=== PATIENT | male | born 1945 | race Caucasian/White ===

== ENCOUNTER 2018-02-22 08:48 | Inpatient (IN) | payer MEDICARE, SELFPAY ==
[2018-02-22] VITALS (10 sets, daily range): BP systolic 155–188; BP diastolic 96–107; PULSE 73–98; RESP 14–18; TEMP 36.3–36.6; O2SAT 94–98; BMI 36.8; BMI 33.7; BMI 33.8
--- NOTE | 2018-02-22 09:23 | EKG12_ITS ---
Test Reason : BACK PAIN Blood Pressure : / mmHG Vent. Rate : 096 BPM Atrial Rate : 344 BPM P-R Int : 000 ms QRS Dur : 080 ms QT Int : 418 ms P-R-T Axes : 000 -09 042 degrees QTc Int : 528 ms Atrial flutter with variable A-V block Nonspecific ST abnormality Prolonged QT Abnormal ECG Confirmed by ELI RUFF ([id number]), newspaper editor NILS EVANS ([id number]) on 02/24/2018 2:25:47 PM Referred By: CHENG Confirmed By:ELI RUFF
--- NOTE | 2018-02-22 09:28 | RAD_ITS ---
STUDY: X-RAY CHEST REASON FOR EXAM: Male, 72 years old. SUDDEN BACK PAIN, DIAPHORETIC. PATIENT IN AFLUTTER TECHNIQUE: Single AP portable view of the chest. COMPARISON: None. FINDINGS: The right hemidiaphragm is elevated. There is mild bibasilar atelectasis. There is no demonstrated pleural abnormality. There is borderline cardiomegaly. Normal mediastinum and ene. Normal visualized pulmonary arteries. There is atherosclerotic tortuosity of the aortic arch and descending thoracic aorta. Normal visualized thoracic spine. Normal visualized ribs, clavicles, and shoulders. There is no demonstrated abnormality of the visualized soft tissue structures of the upper abdomen. RAD/Chest 1 View (Portable) IMPRESSION: The right hemidiaphragm is elevated. There is mild bibasilar atelectasis. There is borderline cardiomegaly. Electronically Signed: Alma Waddell MD at 10:01 EDT , Service support ,
[2018-02-22] MEDS: 0.9% Normal Saline 1,000 ML 150 ML IV (09:50)
[2018-02-22] MEDS: Aspirin 81 MG TAB.CHEW 324 MG PO (09:50)
[2018-02-22 09:51] LABS: Absolute Lymphocyte Count 0.96 X10^3/ul (0.83-4.51); Absolute Neutrophil Count 5.3 X10^3/uL (2.0-7.7); Basophil# 0.04 X10^3/uL; Basophil% 0.6 % (0-1); Eosinophil# 0.16 X10^3/uL; Eosinophils% 2.3 % (0-5); Hematocrit 45.5 % (40-54); Hemoglobin 15.4 g/dl (13.0-16.5); Lymphocyte # 0.96 X10^3/ul (4.0); Lymphocyte % 13.8 % (19-41); Mean Corp Hgb Conc 33.8 g/gl (32-36); Mean Corpuscular Hgb 30.9 pg (27.0-32.0); Mean Corpuscular Volume 91.2 fL (80-94); Mean Platelet Vol. 10.1 fl (6.2-12.0); Monocyte# 0.47 X10^3/uL; Monocyte% 6.7 % (0-10); Neutrophil # 5.34 X10^3/uL (2.7-7.7); Neutrophil % 76.5 % (47-70); Platelet Count 224 K/mm3 (150-450); RBC Distribution Width CV 13.7 % (11.6-14.6); Red Blood Count 4.99 M/mm3 (4.6-6.2)
[2018-02-22 09:55] LABS: POSITIVE COUNT NO; POSITIVE DIFFERENTIAL NO; POSITIVE MORPHOLOGY NO
--- NOTE | 2018-02-22 10:00 | ED.VISSUMM ---
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 He reports that he has a history of chronic back pain following a fall in 1987. States the pain comes and goes and is relieved mainly by acupuncture. Last had acupuncture approximately 4 months ago. States pain is increased over the past month. He denies any trauma. No fall, MVA, or change in activity. Reports that this morning he was having pain that was 10 out of 10 in severity. He received medication by squad on the way to the emergency room and reports that his pain is now 2 out of 10 severity. Pain is worsened by movement. He denies any radiation to his legs. No numbness or weakness in his legs. No problems with his bowels or his bladder. 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 Is that he has had this in the past as well. He denies any chest pain, shortness of breath, palpitations, abdominal pain, nausea, vomiting, diarrhea, melena, hematochezia, or other complaints. Physical Examination: Vitals: Stable. Afebrile. General: Well-nourished and well-developed. Head: Normocephalic atraumatic. Neck: Supple, no lymphadenopathy. No JVD. Nontender. Cardiovascular: Irregular rhythm. No murmurs. Respiratory: No respiratory distress. Clear to auscultation bilaterally. Abdominal: Soft, nontender, nondistended, normal bowel sounds. No guarding, rebound, or peritoneal signs. Back: Nontender. Extremities: Nontender, no edema. Skin: Normal color, no rash. Neurologic: Alert and oriented ?3. Cranial nerves II through XII are intact. Normal strength and sensation. Psych: Normal affect. Test Results: EKG is atrial flutter at 96 with no ischemic changes. Oh for segment neutrophils of 77 lymphocytes 14. Chem-7 is more for glucose 134 and BUN of 21. TSH 3.20. Coags are normal. Troponin 0 0.03. Emergency Department Course and Treatment: Patient is resting comfortably and refused further pain medications. He was treated with aspirin p.o. He does not sense the atrial flutter and it is unclear how long he has been in this rhythm. He does not have a history of atrial flutter. Treatment Plan: Patient will be admitted to the hospital for further evaluation and treatment. Disposition: Admitted in stable condition. Impression: 1. Chronic back pain. 2. Atrial flutter, new onset. 3. Near syncope. This note was generated with [employer] dictation software. It may contain incorrect words, spelling, and punctuation that were not noted in review of the chart prior to signing ED Disposition - Plan for ED Patient: Chief Complaint: Back Referrals: Care Physician,No Primary [Primary Care Provider] -
[2018-02-22 10:05] LABS: Prothrombin Time (Protime)PT. 13.1 SECONDS (11.7-14.9)
[2018-02-22 10:06] LABS: Partial Thromboplast Time 28.5 Seconds (24.1-36.2)
[2018-02-22 10:18] LABS: Anion Gap 9 (5-15); BUN 21 mg/dL (7-18); BUN/Creat Ratio 16.9 RATIO (10-20); Calcium,Total 8.6 mg/dL (8.5-10.1); Chloride 107 mmol/L (98-107); Creatinine, Serum 1.24 mg/dL (0.70-1.30); EST Glomerular Filtration Rate 61 mL/min (>60); Est Glom Filt Rate - Afr Amer 74 mL/min (>60); Estimated Creatinine Clearance 64.45 ml/min; Glucose 134 mg/dL (74-106); Potassium 3.9 mmol/L (3.5-5.1); Sodium Level 141 mmol/L (136-145)
--- NOTE | 2018-02-22 11:54 | CASEMGMT ---
Social Work Note Attempted to see pt in ED for initial assessment and pt being wheeled to floor. Inpatient case managed to evaluate for discharge needs. Kenia Powell, [employer]TER [employer], GLUE JOINTER FEEDER
--- NOTE | 2018-02-22 12:04 | ECHOD_ITS ---
Reason For Study: AFIB/FLUTTER Procedure This was a 2D Doppler, Color Flow transthoracic echocardiogram. Exam performed portable in patient room. Left Ventricle Moderate concentric left ventricular hypertrophy. The estimated ejection fraction is 65-70 %. Unable to assess diastolic dysfunction. No regional wall motion abnormalities noted. Right Ventricle Normal size and thickness. Normal systolic function. Atria Normal left atrium. Normal right atrium. Normal atrial septum. Mitral Valve The mitral valve is structurally normal. No prolapse or stenosis seen. Tricuspid Valve Normal tricuspid valve. Unable to estimate RV systolic pressure/pulmonary artery pressure due to technically difficult study. Aortic Valve Normal aortic valve. Trisinus/trileaflet aortic valve. Pulmonic Valve Normal pulmonic valve. Great Vessels Normal aortic root. Normal arch. Normal inferior vena cava. Inferior vena cava collapse with sniff. Pericardium/Pleural No pericardial effusion. MMode/2D Measurements & Calculations LVIDd: 4.1 cm IVSd: 1.5 cm Ao root diam: 3.8 cm LVIDs: 2.8 cm LVPWd: 1.6 cm RVDd: 3.6 cm FS: 32.9 % LAV(MOD-bp): 49.5 ml EDV(MOD-sp4): 111.6 ml SV(MOD-sp4): 76.1 ml LAV(MOD-bp) Indexed: 19.9 ml/m2 ESV(MOD-sp4): 35.5 ml LAV(MOD-sp2): 55.3 ml EF(MOD-sp4): 68.2 % LAV(MOD-sp4): 45.4 ml LA A4 area: 17.9 cm2 RA A4 area: 14.3 cm2 Doppler Measurements & Calculations MV E max geovanny: 98.4 cm/sec Ao V2 max: 147.3 cm/sec LV V1 max: 145.3 cm/sec Ao max P.8 mmHg LV V1 max P.5 mmHg PA V2 max: 147.3 cm/sec Interpretation Summary Moderate concentric left ventricular hypertrophy. The estimated ejection fraction is 65-70 %. Unable to assess diastolic dysfunction. Unable to estimate RV systolic pressure/pulmonary artery pressure due to technically difficult study. Pt appears to be in atrial flutter. The study was technically difficult. There is no comparison study available. Ordering Physician: Kevin Mixon Performed By: Iliana Solano RDCS
--- NOTE | 2018-02-22 12:08 | PCM.HP.STD ---
Problem List (1) Near syncope Status: Acute (2) Atrial flutter Status: Acute (3) Status post Whipple's procedure Status: Chronic (4) Familial adenomatous polyposis Status: Chronic (5) Chronic back pain Status: Chronic (6) Hypertension Status: Chronic History of Present Illness Date of Admission: 02/22/18 Chief Complaint: Back pain, near syncope. The patient is a 72 year old M with past medical history as mentioned above presented to the emergency room because of back pain and near syncope. This patient with a history of back injury back in 1987 and since then, he has issues with chronic back pain. For the last 2 weeks, he has been having progressively increasing low back pain, sharp pain, 7 out of 10 in severity, not radiating, associated with muscle spasm around his lower back, somewhat aggravated by movement and he mentioned that the only relieving factor is acupuncture. He did mention that when his pain starts, it is so severe that he is about to pass out. He denied chest pain, dizziness or lightheadedness. He did mention that he had multiple episodes of near passing out when he has those episodes of sharp sudden onset back pain. He denied upper back pain, palpitation, dizziness or lightheadedness. He had multiple sessions for acupuncture in the past and he mentioned that that works perfectly for his back pain. He denied mechanical fall or trauma at this time. He denied numbness or tingling of both legs. He denied bowel or bladder incontinence. In the emergency room, he was found to be in atrial flutter, heart rate was around high 90s, blood pressure slightly elevated, was afebrile. Routine blood work was unremarkable. Troponin was negative. TSH was normal. Pro time and INR were normal. His EKG revealed atrial flutter with a rate of about 96 bpm, no acute ischemic changes. Chest x-ray revealed mild cardiomegaly, no acute infiltrate, consolidation or effusion. He is being admitted for new onset atrial flutter, new syncope and acute on chronic back pain. Past Medical History Past Medical History (Chronic Problems): Chronic Problems Status post Whipple's procedure (Chronic) Familial adenomatous polyposis (Chronic) Chronic back pain (Chronic) Hypertension (Chronic) Allergies Penicillins Allergy (Verified 02/22/18 08:53) Itching Home Medications: Ambulatory Orders Medication Instructions Recorded Metoprolol Tartrate [Lopressor] 50 mg PO BID 02/22/18 Multivitamin [Multiple Vitamins] 1 each PO DAILY 02/22/18 Surgical History: - - Whipple procedure. Psychiatric History: No pertinent psych hx Lives: Spouse/ Significant Other Smoking Status: Former smoker Alcohol: Rare Drugs: None - *Family History Maternal History Items: No pertinent history Paternal History Items: No pertinent history Review of Systems Constitutional: Denies: Anorexia, Chills, Fever, Weakness Eyes: Denies: Blurred vision, Double vision, Drainage, Redness HEENT: Denies: Difficulty Hearing, Ear Pain, Eye Pain, Nasal Congestion, Sore Throat Cardiovascular: Reports: - - Near syncope.. Denies: Chest Pain, Chest Pressure, Edema, Heaviness, Orthopnea, Palpitations, Paroxysmal Noc. Dyspnea, Syncope Respiratory: Denies: Cough, Hemoptysis, Pleuritic Pain, Shortness of Breath, Sputum production, Wheezing Gastrointestinal: Denies: Abdominal Pain, Constipation, Diarrhea, Nausea, Vomiting Genitourinary: Denies: Dysuria, Frequency, Hematuria Musculoskeletal: Reports: Back Pain. Denies: Arm Pain, Foot Pain Skin: Denies: Dryness, Rash Neurological: Denies: Balance problems, Change in Speech, Slurred speech, Confusion, Headaches, Incoordination, Numbness Psychiatric: Denies: Anxiety, Depression Endocrine: Denies: Change in Body Habitus, Polydipsia VTE Information - Inpt Only VTE Present on Admission: No VTE Mechan Device Prophylaxis: None VTE Pharm Prophylaxis ordered?: Yes Patient Problems: Active and Suspected Problems Near syncope (Acute) Atrial flutter (Acute) - Physical Exam General: Alert, Oriented x3, Cooperative, No apparent distress HEENT: Atraumatic, PERRLA, EOMI Oral: Moist Mucosa, No Gingival or Mucosal Lesions/ Ulcerations Neck: Supple, No JVD, Negative Carotid Bruits, Trachea Midline, Thyroid Normal Size and Texture Lungs: Clear to auscultation, No rhonchi, No wheeze, No rales, Diminished Cardiovascular: Normal S1, Normal S2, No murmurs, PMI Normal, Irregular Rate, Tachycardic Abdomen: Bowel Sounds Present, Soft, Non Tender, Non-Distended, No Hepato-splenomegaly Extremities: No clubbing, No cyanosis, No edema Skin: No rashes, No breakdown Lymphatic: No Cervical, Supraclavicular, or Inguinal Adenopathy Neurological: Cranial nerves II-XII grossly intact, Motor Exam 5/5 strength throughout Psych/Mental Status: Normal Affect, Appropriate, Alert and oriented to time, place, person, mood and affect Vital Signs Temp Pulse Resp BP Pulse Ox 97.8 F 80 16 164/107 H 97 02/22/18 08:48 02/22/18 11:19 02/22/18 11:19 02/22/18 11:19 02/22/18 11:19 Oxygen Flow Rate (L/min) 2 Oxygen Delivery Method Nasal Cannula Weight: 270 lb 1.06 oz Body Mass Index (BMI) 33.7 Laboratory Tests 02/22/18 02/22/18 02/22/18 Range/Units 09:40 09:40 09:40 WBC 7.0 (4.4-11.0) K/mm3 RBC 4.99 (4.6-6.2) M/mm3 Hgb 15.4 (13.0-16.5) g/dl Hct 45.5 (40-54) % MCV 91.2 (80-94) fL MCH 30.9 (27.0-32.0) pg MCHC 33.8 (32-36) g/gl RDW 13.7 (11.6-14.6) % RDW Differential 45.0 H (35.1-43.9) fl Plt Count 224 (150-450) K/mm3 MPV 10.1 (6.2-12.0) fl Immature Gran % (Auto) 0.100 (0.0-0.9) % Neut % (Auto) 76.5 H (47-70) % Lymph % (Auto) 13.8 L (19-41) % [place] % (Auto) 6.7 (0-10) % Eos % (Auto) 2.3 (0-5) % Baso % (Auto) 0.6 (0-1) % Absolute Neuts (auto) 5.3 (2.0-7.7) X10^3/uL Absolute Lymphs (auto) 0.96 (0.83-4.51) X10^3/ul Total Counted Not Reportable PT 13.1 (11.7-14.9) SECONDS INR 1.0 APTT 28.5 (24.1-36.2) Seconds Sodium 141 (136-145) mmol/L Potassium 3.9 (3.5-5.1) mmol/L Chloride 107 (98-107) mmol/L Carbon Dioxide 25.0 (21.0-32.0) mmol/L Anion Gap 9 (5-15) BUN 21 H (7-18) mg/dL Creatinine 1.24 (0.70-1.30) mg/dL Estim Creat Clear Calc 64.45 ml/min Est GFR (MDRD) Af Amer 74 (>60) mL/min Est GFR (MDRD) Non-Af 61 (>60) mL/min BUN/Creatinine Ratio 16.9 (10-20) RATIO Glucose 134 H (74-106) mg/dL Calcium 8.6 (8.5-10.1) mg/dL Troponin I 0.03 (<0.06) ng/mL TSH 3.20 (0.358-3.74) uIU/mL Clinical Impression(s) from Imaging Studies Chest X-Ray 02/22/18 09:28 IMPRESSION: The right hemidiaphragm is elevated. There is mild bibasilar atelectasis. There is borderline cardiomegaly. Electronically Signed: Alma Waddell MD at 10:01 EDT , Service support , Assessment/Plan Active and Suspected Problems Near syncope (Acute) Atrial flutter (Acute) This is a 72 years old male patient presented to the medicine because of acute on chronic low back pain and near syncope and he was found to have newly diagnosed atrial flutter. #1 newly diagnosed atrial flutter: EKG revealed atrial flutter, rate was around 96 bpm. Blood pressure slightly elevated. No acute ischemic changes on EKG. Troponin is negative. Chest x-ray showed mild cardiomegaly, no acute findings. TSH was normal. Plan: Admit to PCU, cardiac monitoring, serial cardiac enzymes, repeat EKG tomorrow morning, 2D echocardiogram, check serum magnesium, continue metoprolol for rate control, therapeutic Twice daily. His [id number] score is 2 based on his age and history of hypertension, he is at moderate to high risk of stroke and he is a candidate for anticoagulation. #2 near syncope: This is likely neurogenic because of sudden onset severe back pain. I doubt this is cardiogenic. Chest x-ray revealed tortuous aortic arch and descending thoracic aorta. The patient mentioned that the pain is in the lower back and he had this episode of near syncope in the past with sudden onset acute low back pain. He denied upper back pain, chest pain, shortness of breath or syncope. At this time, I doubt any more serious condition such as aortic dissection. No indication for further workup. #3 acute on chronic low back pain: He has chronic back pain secondary to back injury back in 1987. He has been using acupuncture intermittently which works specifically for his pain. He is not on any chronic pain medicine. No evidence of acute nerve compression. Denied mechanical fall or trauma. Plan: OxyIR as needed, Flexeril, PT OT evaluation and treatment. #4 hypertension: Blood pressure slightly elevated, continue metoprolol, start IV hydralazine as needed. #5 history of familial adenomatous polyposis: Status post Whipple's procedure, stable. Plan to check LFT, lipase. #6 DVT prophylaxis: Subcu Lovenox twice daily. This note was generated with [employer] dictation software. It may contain incorrect words, spelling, and punctuation that were not noted in checking the note before signing. Code Visit Inpatient E&M: 00637 Init Hosp L3
--- NOTE | 2018-02-22 12:14 | HP.PCM_ITS ---
Problem List (1) Near syncope Status: Acute (2) Atrial flutter Status: Acute (3) Status post Whipple's procedure Status: Chronic (4) Familial adenomatous polyposis Status: Chronic (5) Chronic back pain Status: Chronic (6) Hypertension Status: Chronic History of Present Illness Date of Admission: 02/22/18 Chief Complaint: Back pain, near syncope. The patient is a 72 year old M with past medical history as mentioned above presented to the emergency room because of back pain and near syncope. This patient with a history of back injury back in 1987 and since then, he has issues with chronic back pain. For the last 2 weeks, he has been having progressively increasing low back pain, sharp pain, 7 out of 10 in severity, not radiating, associated with muscle spasm around his lower back, somewhat aggravated by movement and he mentioned that the only relieving factor is acupuncture. He did mention that when his pain starts, it is so severe that he is about to pass out. He denied chest pain, dizziness or lightheadedness. He did mention that he had multiple episodes of near passing out when he has those episodes of sharp sudden onset back pain. He denied upper back pain, palpitation, dizziness or lightheadedness. He had multiple sessions for acupuncture in the past and he mentioned that that works perfectly for his back pain. He denied mechanical fall or trauma at this time. He denied numbness or tingling of both legs. He denied bowel or bladder incontinence. In the emergency room, he was found to be in atrial flutter, heart rate was around high 90s, blood pressure slightly elevated, was afebrile. Routine blood work was unremarkable. Troponin was negative. TSH was normal. Pro time and INR were normal. His EKG revealed atrial flutter with a rate of about 96 bpm, no acute ischemic changes. Chest x-ray revealed mild cardiomegaly, no acute infiltrate, consolidation or effusion. He is being admitted for new onset atrial flutter, new syncope and acute on chronic back pain. Past Medical History Past Medical History (Chronic Problems): Chronic Problems Status post Whipple's procedure (Chronic) Familial adenomatous polyposis (Chronic) Chronic back pain (Chronic) Hypertension (Chronic) Allergies Penicillins Allergy (Verified 02/22/18 08:53) Itching Home Medications: Ambulatory Orders Medication Instructions Recorded Metoprolol Tartrate [Lopressor] 50 mg PO BID 02/22/18 Multivitamin [Multiple Vitamins] 1 each PO DAILY 02/22/18 Surgical History: - - Whipple procedure. Psychiatric History: No pertinent psych hx Lives: Spouse/ Significant Other Smoking Status: Former smoker Alcohol: Rare Drugs: None - *Family History Maternal History Items: No pertinent history Paternal History Items: No pertinent history Review of Systems Constitutional: Denies: Anorexia, Chills, Fever, Weakness Eyes: Denies: Blurred vision, Double vision, Drainage, Redness HEENT: Denies: Difficulty Hearing, Ear Pain, Eye Pain, Nasal Congestion, Sore Throat Cardiovascular: Reports: - - Near syncope.. Denies: Chest Pain, Chest Pressure , Edema, Heaviness, Orthopnea, Palpitations, Paroxysmal Noc. Dyspnea, Syncope Respiratory: Denies: Cough, Hemoptysis, Pleuritic Pain, Shortness of Breath, Sputum production, Wheezing Gastrointestinal: Denies: Abdominal Pain, Constipation, Diarrhea, Nausea, Vomiting Genitourinary: Denies: Dysuria, Frequency, Hematuria Musculoskeletal: Reports: Back Pain. Denies: Arm Pain, Foot Pain Skin: Denies: Dryness, Rash Neurological: Denies: Balance problems, Change in Speech, Slurred speech, Confusion, Headaches, Incoordination, Numbness Psychiatric: Denies: Anxiety, Depression Endocrine: Denies: Change in Body Habitus, Polydipsia VTE Information - Inpt Only VTE Present on Admission: No VTE Mechan Device Prophylaxis: None VTE Pharm Prophylaxis ordered?: Yes Patient Problems: Active and Suspected Problems Near syncope (Acute) Atrial flutter (Acute) - Physical Exam General: Alert, Oriented x3, Cooperative, No apparent distress HEENT: Atraumatic, PERRLA, EOMI Oral: Moist Mucosa, No Gingival or Mucosal Lesions/ Ulcerations Neck: Supple, No JVD, Negative Carotid Bruits, Trachea Midline, Thyroid Normal Size and Texture Lungs: Clear to auscultation, No rhonchi, No wheeze, No rales, Diminished Cardiovascular: Normal S1, Normal S2, No murmurs, PMI Normal, Irregular Rate, Tachycardic Abdomen: Bowel Sounds Present, Soft, Non Tender, Non-Distended, No Hepato- splenomegaly Extremities: No clubbing, No cyanosis, No edema Skin: No rashes, No breakdown Lymphatic: No Cervical, Supraclavicular, or Inguinal Adenopathy Neurological: Cranial nerves II-XII grossly intact, Motor Exam 5/5 strength throughout Psych/Mental Status: Normal Affect, Appropriate, Alert and oriented to time, place, person, mood and affect Vital Signs Temp Pulse Resp BP Pulse Ox 97.8 F 80 16 164/107 H 97 02/22/18 08:48 02/22/18 11:19 02/22/18 11:19 02/22/18 11:19 02/22/18 11:19 Oxygen Flow Rate (L/min) 2 Oxygen Delivery Method Nasal Cannula Weight: 270 lb 1.06 oz Body Mass Index (BMI) 33.7 Laboratory Tests 3 02/22/18 02/22/18 02/22/18 Range/Units 09:40 09:40 09:40 WBC 7.0 (4.4-11.0) K/mm3 RBC 4.99 (4.6-6.2) M/mm3 Hgb 15.4 (13.0-16.5) g/dl Hct 45.5 (40-54) % MCV 91.2 (80-94) fL MCH 30.9 (27.0-32.0) pg MCHC 33.8 (32-36) g/gl RDW 13.7 (11.6-14.6) % RDW Differential 45.0 H (35.1-43.9) fl Plt Count 224 (150-450) K/mm3 MPV 10.1 (6.2-12.0) fl Immature Gran % (Auto) 0.100 (0.0-0.9) % Neut % (Auto) 76.5 H (47-70) % Lymph % (Auto) 13.8 L (19-41) % [place] % (Auto) 6.7 (0-10) % Eos % (Auto) 2.3 (0-5) % Baso % (Auto) 0.6 (0-1) % Absolute Neuts (auto) 5.3 (2.0-7.7) X10^3/uL Absolute Lymphs (auto) 0.96 (0.83-4.51) X10^3/ul Total Counted Not Reportable PT 13.1 (11.7-14.9) SECONDS INR 1.0 APTT 28.5 (24.1-36.2) Seconds Sodium 141 (136-145) mmol/L Potassium 3.9 (3.5-5.1) mmol/L Chloride 107 (98-107) mmol/L Carbon Dioxide 25.0 (21.0-32.0) mmol/L Anion Gap 9 (5-15) BUN 21 H (7-18) mg/dL Creatinine 1.24 (0.70-1.30) mg/dL Estim Creat Clear Calc 64.45 ml/min Est GFR (MDRD) Af Amer 74 (>60) mL/min Est GFR (MDRD) Non-Af 61 (>60) mL/min BUN/Creatinine Ratio 16.9 (10-20) RATIO Glucose 134 H (74-106) mg/dL Calcium 8.6 (8.5-10.1) mg/dL Troponin I 0.03 (<0.06) ng/mL TSH 3.20 (0.358-3.74) uIU/mL Clinical Impression(s) from Imaging Studies Chest X-Ray 02/22/18 09:28 IMPRESSION: The right hemidiaphragm is elevated. There is mild bibasilar atelectasis. There is borderline cardiomegaly. Electronically Signed: Alma Waddell MD at 10:01 EDT , Service support , Assessment/Plan Active and Suspected Problems Near syncope (Acute) Atrial flutter (Acute) This is a 72 years old male patient presented to the medicine because of acute on chronic low back pain and near syncope and he was found to have newly diagnosed atrial flutter. #1 newly diagnosed atrial flutter: EKG revealed atrial flutter, rate was around 96 bpm. Blood pressure slightly elevated. No acute ischemic changes on EKG. Troponin is negative. Chest x-ray showed mild cardiomegaly, no acute findings. TSH was normal. Plan: Admit to PCU, cardiac monitoring, serial cardiac enzymes, repeat EKG tomorrow morning, 2D echocardiogram, check serum magnesium, continue metoprolol for rate control, therapeutic Twice daily. His [id number] score is 2 based on his age and history of hypertension, he is at moderate to high risk of stroke and he is a candidate for anticoagulation. #2 near syncope: This is likely neurogenic because of sudden onset severe back pain. I doubt this is cardiogenic. Chest x-ray revealed tortuous aortic arch and descending thoracic aorta. The patient mentioned that the pain is in the lower back and he had this episode of near syncope in the past with sudden onset acute low back pain. He denied upper back pain, chest pain, shortness of breath or syncope. At this time, I doubt any more serious condition such as aortic dissection. No indication for further workup. #3 acute on chronic low back pain: He has chronic back pain secondary to back injury back in 1987. He has been using acupuncture intermittently which works specifically for his pain. He is not on any chronic pain medicine. No evidence of acute nerve compression. Denied mechanical fall or trauma. Plan: OxyIR as needed, Flexeril, PT OT evaluation and treatment. #4 hypertension: Blood pressure slightly elevated, continue metoprolol, start IV hydralazine as needed. #5 history of familial adenomatous polyposis: Status post Whipple's procedure, stable. Plan to check LFT, lipase. #6 DVT prophylaxis: Subcu Lovenox twice daily. This note was generated with [employer] dictation software. It may contain incorrect words, spelling, and punctuation that were not noted in checking the note before signing. Code Visit Inpatient E&M: 39489 Init Hosp L3
[2018-02-22 12:43] LABS: AST(SGOT) 25 U/L (15-37); Alanine Aminotransfer ALT/SGPT 38 U/L (16-61); Albumin, Serum 3.3 g/dL (3.2-5.0); Alkaline Phosphatase 117 U/L (45-117); Bilirubin, Direct 0.12 mg/dL (0.00-0.30); Cholesterol 161 mg/dL (200); Globulin 3.6 g/dL (2.2-4.2); High Density Lipoprotein 41 mg/dL; Lipase 83 U/L (73-393); Protein, Total 6.9 g/dL (6.4-8.2); Triglycerides 218 mg/dL; Very Low Density Lipoprotein 44 mg/dL (5-40)
[2018-02-22] MEDS: 0.9% Normal Saline 1,000 ML 75 ML IV (16:54)
[2018-02-22] MEDS: Enoxaparin 120 MG/0.8 ML Syringe SC (16:55)
[2018-02-22] MEDS: Metoprolol Tartrate 50 MG Tablet PO (21:14)
[2018-02-23] VITALS (15 sets, daily range): BP systolic 133–176; BP diastolic 79–106; PULSE 53–92; RESP 16–18; TEMP 36.4–37.1; O2SAT 96–98
[2018-02-23] MEDS: hydrALAZINE 20 MG/ML Vial 10 MG IV (03:11)
--- NOTE | 2018-02-23 05:55 | EKG12_ITS ---
Test Reason : AM EKG Blood Pressure : / mmHG Vent. Rate : 081 BPM Atrial Rate : 081 BPM P-R Int : 000 ms QRS Dur : 090 ms QT Int : 400 ms P-R-T Axes : 000 -19 049 degrees QTc Int : 464 ms Atrial fibrillation Abnormal ECG Confirmed by PITER ANTOINE, VITALY ([id number]), technical editor NILS EVANS ([id number] on 02/25/2018 1:28:38 PM Referred By: MONICA Confirmed By:VITALY DUMAS MD
[2018-02-23] MEDS: Lisinopril 20 MG Tablet PO (06:35)
[2018-02-23] MEDS: Enoxaparin 120 MG/0.8 ML Syringe SC (06:36)
--- NOTE | 2018-02-23 07:55 | PCM.PROGNOTE ---
Patient Problems: Active and Suspected Problems Near syncope (Acute) Atrial flutter (Acute) Subjective: Chief complaint: Follow-up after admission for newly diagnosed atrial flutter/fibrillation and acute on chronic back pain. Patient seen and examined. No acute events overnight. Back pain significantly improved, no more muscle spasm. Denied chest pain, shortness of breath, palpitation, dizziness or lightheadedness. He remained in A. fib, rate is controlled. Blood pressure is elevated. Apparently, patient takes 100 mg of metoprolol twice a day but he mentioned that he takes only 50 mg twice a day. - Physical Exam General: Alert, Oriented x3, Cooperative, No apparent distress HEENT: Atraumatic, PERRLA, EOMI Oral: Moist Mucosa, No Gingival or Mucosal Lesions/ Ulcerations Neck: Supple, No JVD, Negative Carotid Bruits, Trachea Midline, Thyroid Normal Size and Texture Lungs: Clear to auscultation, No rhonchi, No wheeze, No rales, Diminished Cardiovascular: Normal S1, Normal S2, No murmurs, PMI Normal, Irregular Rate Abdomen: Bowel Sounds Present, Soft, Non Tender, Non-Distended, No Hepato-splenomegaly Extremities: No clubbing, No cyanosis, No edema Skin: No rashes, No breakdown Lymphatic: No Cervical, Supraclavicular, or Inguinal Adenopathy Neurological: Cranial nerves II-XII grossly intact, Neuro grossly intact Psych/Mental Status: Normal Affect, Appropriate Vital Signs Temp Pulse Resp BP Pulse Ox 98.3 F 81 16 176/106 H 96 02/23/18 03:06 02/23/18 06:26 02/23/18 03:06 02/23/18 06:26 02/23/18 03:06 Oxygen Flow Rate (L/min) 2 Oxygen Delivery Method Room Air Weight: 270 lb 1.06 oz Body Mass Index (BMI) 33.7 Intake and Output for Last 24 Hours 02/21/18 02/22/18 02/23/18 23:59 23:59 23:59 Intake Total 1060 / 1060 497 / 497 Balance 1060 / 1060 497 / 497 Laboratory Tests Past 24 Hrs 02/22/18 02/22/18 02/22/18 13:45 17:35 23:14 Troponin I 0.09 H 0.12 H 0.07 H Medical Necessity - Tobacco Use Smoking Status: Former smoker Tobacco Use: Cigarettes Assessment/Plan Active and Suspected Problems Near syncope (Acute) Atrial flutter (Acute) This is a 72 years old male patient presented to the medicine because of acute on chronic low back pain and near syncope and he was found to have newly diagnosed atrial flutter. #1 newly diagnosed atrial flutter/fibrillation: Patient remained in atrial flutter/fibrillation, rate is controlled. He remained asymptomatic. EKG from today revealed atrial fibrillation, rate is controlled. Serum electrolytes are normal. TSH is normal. Troponin is borderline elevated. 2D echocardiogram ordered. He is on metoprolol for rate control and on Lovenox for anticoagulation. Plan: Cardiology consult. #2 near syncope: This is likely neurogenic because of sudden onset severe back pain. I doubt this is cardiogenic. Blood pressure has been elevated, heart rate has been stable and in A. fib. Plan as above. #3 indeterminate troponin: Likely because of atrial flutter/fib. Underlying CAD cannot be excluded. Patient remained without chest pain. Plan as above, cardiology consult, 2D echocardiogram. #4 acute on chronic low back pain: Patient reported significant improvement of his back pain. Flexeril worked perfectly. He has chronic back pain secondary to back injury back in 1987. He has been using acupuncture intermittently which works specifically for his pain. He is not on any chronic pain medicine. #5 hypertension: Blood pressure slightly elevated. Patient's states that he takes 100 mg of metoprolol twice daily instead of 50 mg twice daily. This will be adjusted, continue IV hydralazine as needed. #6 history of familial adenomatous polyposis: Status post Whipple's procedure, stable. LFT and lipase were normal. #7 DVT prophylaxis: Subcu Lovenox twice daily. This note was generated with Vided[employer] dictation software. It may contain incorrect words, spelling, and punctuation that were not noted in checking the note before signing. Code Visit Inpatient E&M: 82396 Subs Hosp L2
[2018-02-23] MEDS: Metoprolol Tartrate 100 MG Tablet PO ×2 (10:16→21:08)
[2018-02-23] MEDS: Fluticasone 0.05% 1 SPRAY NASAL.SRY NASAL ×2 (10:16→21:08)
[2018-02-23] MEDS: Aspirin 325 MG Tablet PO (10:16)
[2018-02-23] MEDS: 0.9% NaCl Peripheral Flush Adult/Peds IV ×2 (10:17→21:08)
--- NOTE | 2018-02-23 11:24 | CASEMGMT ---
Face to Face with patient for initial transition planning/care coordination assessment. SALMA QUINN introduced self and role at [facility], pt voices understanding and consents to assessment at this time. Pt is sitting up in bed in no distress at this time. Pt is A/O x4 at this time and answers all questions appropriately at this time. Care providers, pharmacy, and demographics verified. See attached link. Pt voices no further concerns/needs at this time. Advised pt to ask for CM if any further questions/concerns/needs arise, voices understanding. Referral to [facility] to complete AD info with pt, voices understanding. PLAN: [place] SALMA QUINN
--- NOTE | 2018-02-23 11:46 | PCM.CONS.C ---
Problem List (1) Near syncope Status: Acute (2) Atrial flutter Status: Acute (3) Hypertension Status: Chronic Reason for Consult Date of Consultation: 02/23/18 Reason for Consultation: Atrial flutter, hypertension, near syncope History of Present Illness: The patient is a 72 year old M, with a history of hypertension, former tobacco user of approximately 10 pack years, quit 30 years ago, nondiabetic, no previous CVA or TIA, normal cholesterol, no known cardiac disease. The patient had a traumatic fall in 1987 fracturing L3 through L5 requiring him to be in rehab for 2 full years. Patient has had chronic low back pain with occasional spasms relieved with acupuncture therapy. In addition the patient drinks between 2-3 cups of coffee a day, and 2 cans of beer per week and co-owns a local bar. While the patient was at work yesterday he developed severe back spasm, with associated palpitations, but no chest pain angina or shortness of breath. The patient became lightheaded and dizzy and had a presyncopal episode. He was brought to the [facility] ER where an EKG showed atrial flutter with rapid ventricular response. This was new to him. He has never been told he had atrial fibrillation or atrial flutter. The patient was treated medically and his initial troponin was negative but then peaked at 0.12 and is now trending downwards. 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 An echocardiogram was performed which showed hyperdynamic LV function with an EF of 65-70%, unable to quantitate RVSP, poor echo windows. Stress test is pending. [] Past Medical History Allergies/Adverse Reactions: Allergies Penicillins Allergy (Verified 02/22/18 08:53) Itching Home Medications: Ambulatory Orders Medication Instructions Recorded Metoprolol Tartrate [Lopressor] 100 mg PO BID 02/22/18 Multivitamin [Multiple Vitamins] 1 each PO DAILY 02/22/18 Past Medical History (Chronic Problems): Chronic Problems Status post Whipple's procedure (Chronic) Familial adenomatous polyposis (Chronic) Chronic back pain (Chronic) Hypertension (Chronic) Surgical History: - - Whipple procedure. Psychiatric History: No pertinent psych hx - *Family History Maternal History Items: No pertinent history Paternal History Items: No pertinent history Lives: Spouse/ Significant Other Smoking Status: Former smoker Tobacco Use: Cigarettes Alcohol: Rare Drugs: None Review of Systems - Review of Systems General: Denies: Fever, Night Sweats, Fatigue Cardiovascular: Reports: Palpitations, Near Syncope. Denies: Chest Discomfort, Shortness of Breath, Orthopnea, PND, Peripheral Edema, Lightheadedness, Dizziness, Syncope Respiratory: Denies: Cough, Sputum Production, Hemoptysis Gastrointestinal: Denies: Hematemesis, Hematochezia, Melena Genitourinary: Denies: Dysuria, Hematuria Skin: Denies: Rash Subjectve: Patient resting in bed, no acute distress. Objective: Vital Signs Temp Pulse Resp BP Pulse Ox 97.6 F L 74 18 133/79 H 96 02/23/18 09:06 02/23/18 10:16 02/23/18 09:06 02/23/18 10:16 02/23/18 09:06 Oxygen Flow Rate (L/min) 2 Oxygen Delivery Method Room Air Weight: 270 lb 1.06 oz Body Mass Index (BMI) 33.7 Intake and Output for Last 24 Hours 02/21/18 02/22/18 02/23/18 23:59 23:59 23:59 Intake Total 1060 / 1060 497 / 497 Balance 1060 / 1060 497 / 497 General: Awake, Alert, Oriented x 3 HEENT: PERRL, EOMI, Sclera Non Icteric Neck: Supple, Good ROM, No Lymph Node Enlargement Lungs: Clear to auscultation Cardiovascular: Irregular Rhythm, Normal S1, Normal S2, No Murmurs, No Rubs, No Gallops Vascular: No Carotid Bruits, Normal Femoral Pulses, Normal Radial Pulses, Normal Dorsalis Pedal Pulse, Normal Posterior Tibial Pulses Abdomen: Bowel Sounds Present, Soft, Non Tender, No HSM, No Organomegaly Extremities: No Cyanosis, No Clubbing, No edema Neurological: No Focal Motor or Sensory Deficit 02/22/18 13:45: Troponin I 0.09 H 02/22/18 17:35: Troponin I 0.12 H 02/22/18 23:14: Troponin I 0.07 H Rhythm: EKG: Atrial flutter with controlled ventricular response, no acute changes, no previous GA. ECHO: As above Stress Test: Pending Cardiac Cath: PCI: CT Surgery: Holter monitor: EPS: PPM: CXR: Chest CT Scan: Assessment/Plan #1. Atrial flutter: Patient has new onset or at least newly detected atrial flutter with associated palpitations and a near syncopal episode which may be related to his severe back spasm due to his previous back injury. Patient is currently stable at this time, and his initial troponin was negative but then peaked at 0.12. His echocardiogram shows normal LV function, in fact hyperdynamic LV with an EF of 65-70%, unable to quantitate RVSP. He has normal saturation so it is doubtful he has a pulmonary embolism. He is quite active at home despite his back injury. At this point I recommend that he undergo a non-walking nuclear stress test to determine if he has any ischemia areas that may require further evaluation. In the meantime he will continue subcu Lovenox, beta-radhika, and lisinopril. If his stress test is abnormal he may require diagnostic coronary angiogram, if his stress test is negative, would recommend medical management with beta-radhika, and anticoagulation therapy such as Eliquis. Patient may spontaneously convert and if he does, would recommend no further anticoagulation unless he has recurrent atrial flutter. If the patient does not convert to normal sinus rhythm would recommend 3 weeks of Eliquis or Xarelto therapy followed by elective DC cardioversion. I advised the patient to avoid alcohol and caffeinated products in an attempt to prevent recurrence of his atrial flutter. It appears his back pain and back spasm may have triggered a hypertensive response which may have triggered his atrial flutter. Patient sees an header machine operator with and gets good relief from this. 2. Thank you very much for the opportunity to put dissipate in the cardiac care of your patient. Consultation time between 815 and 8:45 AM. Code Visit Inpatient E&M: 28980 Init Hosp L2
--- NOTE | 2018-02-23 11:52 | CON.PCM_ITS ---
Problem List (1) Near syncope Status: Acute (2) Atrial flutter Status: Acute (3) Hypertension Status: Chronic Reason for Consult Date of Consultation: 02/23/18 Reason for Consultation: Atrial flutter, hypertension, near syncope History of Present Illness: The patient is a 72 year old M, with a history of hypertension, former tobacco user of approximately 10 pack years, quit 30 years ago, nondiabetic, no previous CVA or TIA, normal cholesterol, no known cardiac disease. The patient had a traumatic fall in 1987 fracturing L3 through L5 requiring him to be in rehab for 2 full years. Patient has had chronic low back pain with occasional spasms relieved with acupuncture therapy. In addition the patient drinks between 2-3 cups of coffee a day, and 2 cans of beer per week and co-owns a local bar. While the patient was at work yesterday he developed severe back spasm, with associated palpitations, but no chest pain angina or shortness of breath. The patient became lightheaded and dizzy and had a presyncopal episode. He was brought to the [facility] ER where an EKG showed atrial flutter with rapid ventricular response. This was new to him. He has never been told he had atrial fibrillation or atrial flutter. The patient was treated medically and his initial troponin was negative but then peaked at 0.12 and is now trending downwards. 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 An echocardiogram was performed which showed hyperdynamic LV function with an EF of 65-70%, unable to quantitate RVSP, poor echo windows. Stress test is pending. [] Past Medical History Allergies/Adverse Reactions: Allergies Penicillins Allergy (Verified 02/22/18 08:53) Itching Home Medications: Ambulatory Orders Medication Instructions Recorded Metoprolol Tartrate [Lopressor] 100 mg PO BID 02/22/18 Multivitamin [Multiple Vitamins] 1 each PO DAILY 02/22/18 Past Medical History (Chronic Problems): Chronic Problems Status post Whipple's procedure (Chronic) Familial adenomatous polyposis (Chronic) Chronic back pain (Chronic) Hypertension (Chronic) Surgical History: - - Whipple procedure. Psychiatric History: No pertinent psych hx - *Family History Maternal History Items: No pertinent history Paternal History Items: No pertinent history Lives: Spouse/ Significant Other Smoking Status: Former smoker Tobacco Use: Cigarettes Alcohol: Rare Drugs: None Review of Systems - Review of Systems General: Denies: Fever, Night Sweats, Fatigue Cardiovascular: Reports: Palpitations, Near Syncope. Denies: Chest Discomfort, Shortness of Breath, Orthopnea, PND, Peripheral Edema, Lightheadedness, Dizziness, Syncope Respiratory: Denies: Cough, Sputum Production, Hemoptysis Gastrointestinal: Denies: Hematemesis, Hematochezia, Melena Genitourinary: Denies: Dysuria, Hematuria Skin: Denies: Rash Subjectve: Patient resting in bed, no acute distress. Objective: Vital Signs Temp Pulse Resp BP Pulse Ox 97.6 F L 74 18 133/79 H 96 02/23/18 09:06 02/23/18 10:16 02/23/18 09:06 02/23/18 10:16 02/23/18 09:06 Oxygen Flow Rate (L/min) 2 Oxygen Delivery Method Room Air Weight: 270 lb 1.06 oz Body Mass Index (BMI) 33.7 Intake and Output for Last 24 Hours 02/21/18 02/22/18 02/23/18 23:59 23:59 23:59 Intake Total 1060 / 1060 497 / 497 Balance 1060 / 1060 497 / 497 General: Awake, Alert, Oriented x 3 HEENT: PERRL, EOMI, Sclera Non Icteric Neck: Supple, Good ROM, No Lymph Node Enlargement Lungs: Clear to auscultation Cardiovascular: Irregular Rhythm, Normal S1, Normal S2, No Murmurs, No Rubs, No Gallops Vascular: No Carotid Bruits, Normal Femoral Pulses, Normal Radial Pulses, Normal Dorsalis Pedal Pulse, Normal Posterior Tibial Pulses Abdomen: Bowel Sounds Present, Soft, Non Tender, No HSM, No Organomegaly Extremities: No Cyanosis, No Clubbing, No edema Neurological: No Focal Motor or Sensory Deficit 02/22/18 13:45: Troponin I 0.09 H 02/22/18 17:35: Troponin I 0.12 H 02/22/18 23:14: Troponin I 0.07 H Rhythm: EKG: Atrial flutter with controlled ventricular response, no acute changes, no previous VA. ECHO: As above Stress Test: Pending Cardiac Cath: PCI: CT Surgery: Holter monitor: EPS: PPM: CXR: Chest CT Scan: Assessment/Plan #1. Atrial flutter: Patient has new onset or at least newly detected atrial flutter with associated palpitations and a near syncopal episode which may be related to his severe back spasm due to his previous back injury. Patient is currently stable at this time, and his initial troponin was negative but then peaked at 0.12. His echocardiogram shows normal LV function, in fact hyperdynamic LV with an EF of 65-70%, unable to quantitate RVSP. He has normal saturation so it is doubtful he has a pulmonary embolism. He is quite active at home despite his back injury. At this point I recommend that he undergo a non-walking nuclear stress test to determine if he has any ischemia areas that may require further evaluation. In the meantime he will continue subcu Lovenox, beta-radhika, and lisinopril. If his stress test is abnormal he may require diagnostic coronary angiogram, if his stress test is negative, would recommend medical management with beta- radhika, and anticoagulation therapy such as Eliquis. Patient may spontaneously convert and if he does, would recommend no further anticoagulation unless he has recurrent atrial flutter. If the patient does not convert to normal sinus rhythm would recommend 3 weeks of Eliquis or Xarelto therapy followed by elective DC cardioversion. I advised the patient to avoid alcohol and caffeinated products in an attempt to prevent recurrence of his atrial flutter. It appears his back pain and back spasm may have triggered a hypertensive response which may have triggered his atrial flutter. Patient sees an banbury mixer operator with and gets good relief from this. 2. Thank you very much for the opportunity to put dissipate in the cardiac care of your patient. Consultation time between 815 and 8:45 AM. Code Visit Inpatient E&M: 57478 Init Hosp L2
--- NOTE | 2018-02-23 16:40 | STRESSREP ---
Stress Test Report Pharmacologic myocardial perfusion stress test. 72-year-old man with a history of atrial fibrillation in the artery disease. Stress protocol: Resting EKG demonstrates atrial fibrillation with a controlled ventricular response rate of 86 bpm. Resting blood pressure is 160/110 mmHg. 0.4 mg of regadenoson was infused per usual protocol followed by rapid intravenous saline flush injection continuous EKG monitoring was performed. The patient maintained atrial fibrillation throughout the recording. There were nonspecific ST-T wave changes noted at rest and during infusion which did not meet the criteria for ischemia. The resting blood pressure is 160/110 mmHg suggesting resting hypertension. Myocardial perfusion protocol. 14.9 mCi of technetium 99m sestamibi was injected at rest. 0.4 mg of regadenoson was infused per usual protocol. At peak infusion 45.0 mCi of technetium 99m sestamibi was injected stress images were obtained stress and rest images were reconstructed and compared in the short axis vertical long and horizontal long axis. Gated images were also obtained. Perfusion SPECT analysis: Review of the stress images demonstrate normal uptake of tracer noted in all areas of the myocardium. The resting images similarly demonstrate normal uptake of tracer noted in all areas of the myocardium. No areas of ischemia or previous infarct are noted. Gated SPECT analysis: The gated ejection fraction is 57%. Conclusion: Normal pharmacologic myocardial perfusion stress test. Preserved ejection fraction.
[2018-02-23] MEDS: APIXABAN 5 MG TABLET PO (21:08)
[2018-02-24 02:56] VITALS: PULSE 92
[2018-02-24 03:14] VITALS: BP 144/79; PULSE 88; RESP 14; TEMP 36.6; O2SAT 97
--- NOTE | 2018-02-24 05:55 | EKG12_ITS ---
Test Reason : AM EKG Blood Pressure : / mmHG Vent. Rate : 072 BPM Atrial Rate : 352 BPM P-R Int : 000 ms QRS Dur : 084 ms QT Int : 400 ms P-R-T Axes : 000 -17 064 degrees QTc Int : 438 ms Atrial flutter with variable A-V block Abnormal ECG Confirmed by PITER ANTOINE, VITALY ([id number]), makeup editor NILS EVANS ([id number]) on 02/25/2018 1:24:34 PM Referred By: NIA Confirmed By:VITALY DUMAS MD
[2018-02-24 07:20] VITALS: PULSE 104
--- NOTE | 2018-02-24 08:13 | PCM.DC ---
- Discharge Diagnoses Current Active Problems: Current Active and Chronic Problems Near syncope (Acute) Atrial flutter (Acute) Status post Whipple's procedure (Chronic) Familial adenomatous polyposis (Chronic) Chronic back pain (Chronic) Hypertension (Chronic) You will use the following diet at home:: Cardiac Your food should be the consistency of: Regular Discharge Activity: Return to Normal Activity Weight Bearing Status: Weight bearing as tolerated Call your doctor if you observe: Fever of 101 or Higher, Shortness of breath, Dizziness, Fainting spells, Chest pain, Increased palpitations (irregular heartbeat), Uncontrolled pain Instructions: Discharge Instructions for Atrial Fibrillation Allergies/Adverse Reactions: Allergies Penicillins Allergy (Verified 02/22/18 08:53) Itching Medications to take at Discharge Metoprolol Tartrate [Lopressor] 100 mg PO BID 02/22/18 Multivitamin [Multiple Vitamins] 1 each PO DAILY 02/22/18 Apixaban [Eliquis] 5 mg PO BID #90 tab 02/24/18 Cyclobenzaprine [Flexeril] 10 mg PO BID PRN PRN #14 tab 02/24/18 Lisinopril [Zestril] 20 mg PO DAILY #30 tab 02/24/18 The following prescriptions were given: Cyclobenzaprine [Flexeril] 10 mg PO BID PRN PRN #14 tab PRN Reason: Muscle spasm, back pain Lisinopril [Zestril] 20 mg PO DAILY #30 tab Apixaban [Eliquis] 5 mg PO BID #90 tab Primary Care Physician: Care Physician,No Primary [Primary Care Provider] - Please follow up with your Primary Care Physician in: 1 week. Please Follow Up With: Alex Rebolledo MD When: 3 weeks. Please call his office.
--- NOTE | 2018-02-24 08:56 | PN.CARD_ITS ---
Subjectve: Patient doing very well this morning, asymptomatic. Still remains in atrial flutter. Echocardiogram yesterday showed normal LV function, stress test was negative for inducible ischemia. Objective: Vital Signs Temp Pulse Resp BP Pulse Ox 97.8 F 104 H 14 144/79 H 97 02/24/18 03:14 02/24/18 07:20 02/24/18 03:14 02/24/18 03:14 02/24/18 03:14 Oxygen Flow Rate (L/min) 2 Oxygen Delivery Method Room Air Weight: 270 lb 1.06 oz Body Mass Index (BMI) 33.7 Intake and Output for Last 24 Hours 02/22/18 02/23/18 02/24/18 23:59 23:59 23:59 Intake Total 1060 / 1060 1477 / 1477 200 / 200 Balance 1060 / 1060 1477 / 1477 200 / 200 General: Awake, Alert, Oriented x 3 HEENT: PERRL, EOMI, Sclera Non Icteric Neck: Supple, Good ROM, No Lymph Node Enlargement Lungs: Clear to auscultation Cardiovascular: Irregular Rhythm, Normal S1, Normal S2, No Murmurs, No Rubs, No Gallops Vascular: No Carotid Bruits, Normal Femoral Pulses, Normal Radial Pulses, Normal Dorsalis Pedal Pulse, Normal Posterior Tibial Pulses Abdomen: Bowel Sounds Present, Soft, Non Tender, No HSM, No Organomegaly Extremities: No Cyanosis, No Clubbing, No edema Neurological: No Focal Motor or Sensory Deficit Rhythm: EKG: ECHO: Normal LV function, unable to quantitate RVSP. Stress Test: Negative for inducible ischemia. Cardiac Cath: PCI: CT Surgery: Holter monitor: EPS: PPM: CXR: Chest CT Scan: Medical Necessity - Tobacco Use Smoking Status: Former smoker Tobacco Use: Cigarettes Assessment/Plan #1. Atrial flutter: Patient has new onset or at least newly detected atrial flutter with associated palpitations and a near syncopal episode which may be related to his severe back spasm due to his previous back injury. Patient is currently stable at this time, and his initial troponin was negative but then peaked at 0.12. His echocardiogram shows normal LV function, in fact hyperdynamic LV with an EF of 65-70%, unable to quantitate RVSP. He has normal saturation so it is doubtful he has a pulmonary embolism. He is quite active at home despite his back injury. Noninvasive nuclear stress test yesterday was negative for inducible ischemia in the face of preserved LV function. No indication for catheterization at this time. At this point I would recommend 3 weeks of Eliquis or Xarelto therapy followed by elective DC cardioversion, as well as beta-radhika therapy for heart rate control. If the patient does not spontaneously convert to normal sinus rhythm will make arrangements for the patient undergo DC cardioversion in 3 weeks time. I advised the patient to avoid alcohol and caffeinated products in an attempt to prevent recurrence of his atrial flutter. It appears his back pain and back spasm may have triggered a hypertensive response which may have triggered his atrial flutter. Patient sees an end finder twisting department with and gets good relief from this. 2. Thank you very much for the opportunity to put dissipate in the cardiac care of your patient. Patient may be discharged home. He will follow-up with me going forward. Code Visit Inpatient E&M: 18468 Subs Hosp L2
[2018-02-24 09:14] VITALS: BP 144/77; PULSE 66; RESP 14; TEMP 36.4; O2SAT 98
[2018-02-24 09:31] VITALS: PULSE 66
[2018-02-24] MEDS: Fluticasone 0.05% 1 SPRAY NASAL.SRY NASAL (09:31)
[2018-02-24] MEDS: APIXABAN 5 MG TABLET PO (09:31)
[2018-02-24] MEDS: Metoprolol Tartrate 100 MG Tablet PO (09:31)
[2018-02-24] MEDS: Lisinopril 20 MG Tablet PO (09:31)
--- NOTE | 2018-02-24 10:07 | NURSING ---
Reviewed and agreed on all charting with Pamela Ardon RN
--- NOTE | 2018-02-24 13:03 | PCM.DC.SUM ---
Discharge Date and Diagnosis Date of Admission: 02/22/18 Date of Discharge: 02/24/18 - Primary Discharge Diagnosis #1 new onset atrial flutter/fibrillation. #2 near syncope. #3 indeterminate troponin. #4 acute on chronic low back pain. #5 uncontrolled hypertension. - Secondary Discharge Diagnosis Chronic Problems Status post Whipple's procedure (Chronic) Familial adenomatous polyposis (Chronic) Chronic back pain (Chronic) Hypertension (Chronic) Hospital Course and Treatment Imaging Results: Clinical Impression(s) from Imaging Studies Chest X-Ray 02/22/18 09:28 IMPRESSION: The right hemidiaphragm is elevated. There is mild bibasilar atelectasis. There is borderline cardiomegaly. Electronically Signed: Alma Waddell MD at 10:01 EDT , Service support , Dr. Rebolledo, cardiology Operations: None Procedures: 2-D Echocardiogram, EKG Summary of Care Provided: Patient seen and examined on the day of discharge and appeared to be stable to be discharged home. His back pain is getting better and he has been ambulating without difficulties. Denied chest pain, shortness of breath, dizziness, lightheadedness, palpitation, syncope or presyncope. His vital signs are stable, he remained in A. fib/flutter. EKG this morning revealed atrial flutter, rate controlled. - Physical Exam General: Alert, Oriented x3, Cooperative, No apparent distress. HEENT: Atraumatic, PERRLA, EOMI. Neck: Supple, No JVD, Negative Carotid Bruits, Trachea Midline, Thyroid Normal. Lungs: Clear to auscultation, Normal air movement, No rhonchi, No wheeze, No rales. Cardiovascular: irregular rhythm, Normal S1, Normal S2, PMI Normal. Abdomen: Bowel Sounds Present, Soft, Non Tender, Non-Distended, No Hepato-splenomegaly. Extremities: No clubbing, No cyanosis, No edema Skin: No rashes, No breakdown Neurological: Neuro grossly intact Vital Signs are stable. Hospital course: The patient is a 72 year old M presented to the emergency room because of acute on chronic low back pain as well as knee syncope and he was diagnosed with new onset atrial flutter/fibrillation and also found to have indeterminate troponin. This patient had a history of back injury long time ago and since then, he has been chronic low back pain and he has been going for acupuncture which seemed working for his back pain. In the emergency room, was found to have new onset atrial flutter. His heart rate remained stable throughout admission and never went above 100. His blood pressure was elevated which is attributed to uncontrolled low back pain. Patient kept flipping from atrial flutter and atrial fibrillation back and forth. His heart rate remained stable although he remained in A. fib/flutter. 2D echocardiogram revealed ejection fraction of 65-70%, moderate LVH, no significant valvular heart disease. Again, potassium, magnesium and TSH were normal. His troponin was borderline elevated and indeterminate. This is attributed to atrial flutter. Patient had no chest pain throughout admission. Cardiology consulted and recommended to continue beta-blockers for rate control, Eliquis for anticoagulation and plan is to have the patient come back in 3 weeks for possible cardioversion if he did not convert back to sinus rhythm. Regarding his back pain, he was given Paxil for muscle spasm and OxyIR as needed for pain. His back pain significantly improved. His blood pressure has been elevated for which he was started on lisinopril 20 mg p.o. daily and kept on metoprolol. Patient discharged home in a stable medical condition, discharged on metoprolol 100 twice daily for rate control, discharged on Eliquis for anticoagulation, continued on lisinopril, started on Flexeril for muscle spasm and back pain, recommended follow-up with PCP in 1 week, follow-up with cardiology in 3 weeks. Discharge Activity: Return to Normal Activity Weight Bearing Status: Weight bearing as tolerated Call your doctor if you observe: Fever of 101 or Higher, Shortness of breath, Dizziness, Fainting spells, Chest pain, Increased palpitations (irregular heartbeat), Uncontrolled pain Home Medications: Medications to take at Discharge Metoprolol Tartrate [Lopressor] 100 mg PO BID 02/22/18 Multivitamin [Multiple Vitamins] 1 each PO DAILY 02/22/18 Apixaban [Eliquis] 5 mg PO BID #90 tab 02/24/18 Cyclobenzaprine [Flexeril] 10 mg PO BID PRN PRN #14 tab 02/24/18 Lisinopril [Zestril] 20 mg PO DAILY #30 tab 02/24/18 Following Prescrptions Were Given to Patient: Cyclobenzaprine [Flexeril] 10 mg PO BID PRN PRN #14 tab PRN Reason: Muscle spasm, back pain Lisinopril [Zestril] 20 mg PO DAILY #30 tab Apixaban [Eliquis] 5 mg PO BID #90 tab Primary Care Physician: Care Physician,No Primary [Primary Care Provider] - Please follow up with your Primary Care Physician in: 1 week. Please Follow Up With: Alex Rebolledo MD When: 3 weeks. Please call his office. Patient Instructions: Discharge Instructions for Atrial Fibrillation Disposition: Home Minutes spent on discharge:: 33 Patient Condition:: Stable Medical Necessity - Tobacco Use Smoking Status: Former smoker Tobacco Use: Cigarettes Meaningful Use Info Meaningful Use Diagnoses (Choose all that apply): None applicable Code Visit Inpatient E&M: 16242 Disch Hosp
--- NOTE | 2018-02-24 13:10 | DS.PCM_ITS ---
Discharge Date and Diagnosis Date of Admission: 02/22/18 Date of Discharge: 02/24/18 - Primary Discharge Diagnosis #1 new onset atrial flutter/fibrillation. #2 near syncope. #3 indeterminate troponin. #4 acute on chronic low back pain. #5 uncontrolled hypertension. - Secondary Discharge Diagnosis Chronic Problems Status post Whipple's procedure (Chronic) Familial adenomatous polyposis (Chronic) Chronic back pain (Chronic) Hypertension (Chronic) Hospital Course and Treatment Imaging Results: Clinical Impression(s) from Imaging Studies Chest X-Ray 02/22/18 09:28 IMPRESSION: The right hemidiaphragm is elevated. There is mild bibasilar atelectasis. There is borderline cardiomegaly. Electronically Signed: Alma Waddell MD at 10:01 EDT , Service support , Dr. Rebolledo, cardiology Operations: None Procedures: 2-D Echocardiogram, EKG Summary of Care Provided: Patient seen and examined on the day of discharge and appeared to be stable to be discharged home. His back pain is getting better and he has been ambulating without difficulties. Denied chest pain, shortness of breath, dizziness, lightheadedness, palpitation, syncope or presyncope. His vital signs are stable , he remained in A. fib/flutter. EKG this morning revealed atrial flutter, rate controlled. - Physical Exam General: Alert, Oriented x3, Cooperative, No apparent distress. HEENT: Atraumatic, PERRLA, EOMI. Neck: Supple, No JVD, Negative Carotid Bruits, Trachea Midline, Thyroid Normal. Lungs: Clear to auscultation, Normal air movement, No rhonchi, No wheeze, No rales. Cardiovascular: irregular rhythm, Normal S1, Normal S2, PMI Normal. Abdomen: Bowel Sounds Present, Soft, Non Tender, Non-Distended, No Hepato- splenomegaly. Extremities: No clubbing, No cyanosis, No edema Skin: No rashes, No breakdown Neurological: Neuro grossly intact Vital Signs are stable. Hospital course: The patient is a 72 year old M presented to the emergency room because of acute on chronic low back pain as well as knee syncope and he was diagnosed with new onset atrial flutter/fibrillation and also found to have indeterminate troponin. This patient had a history of back injury long time ago and since then, he has been chronic low back pain and he has been going for acupuncture which seemed working for his back pain. In the emergency room, was found to have new onset atrial flutter. His heart rate remained stable throughout admission and never went above 100. His blood pressure was elevated which is attributed to uncontrolled low back pain. Patient kept flipping from atrial flutter and atrial fibrillation back and forth. His heart rate remained stable although he remained in A. fib/flutter. 2D echocardiogram revealed ejection fraction of 65-70%, moderate LVH, no significant valvular heart disease. Again , potassium, magnesium and TSH were normal. His troponin was borderline elevated and indeterminate. This is attributed to atrial flutter. Patient had no chest pain throughout admission. Cardiology consulted and recommended to continue beta-blockers for rate control, Eliquis for anticoagulation and plan is to have the patient come back in 3 weeks for possible cardioversion if he did not convert back to sinus rhythm. Regarding his back pain, he was given Paxil for muscle spasm and OxyIR as needed for pain. His back pain significantly improved. His blood pressure has been elevated for which he was started on lisinopril 20 mg p.o. daily and kept on metoprolol. Patient discharged home in a stable medical condition, discharged on metoprolol 100 twice daily for rate control, discharged on Eliquis for anticoagulation, continued on lisinopril, started on Flexeril for muscle spasm and back pain, recommended follow-up with PCP in 1 week, follow-up with cardiology in 3 weeks. Discharge Activity: Return to Normal Activity Weight Bearing Status: Weight bearing as tolerated Call your doctor if you observe: Fever of 101 or Higher, Shortness of breath, Dizziness, Fainting spells, Chest pain, Increased palpitations (irregular heartbeat), Uncontrolled pain Home Medications: Medications to take at Discharge Metoprolol Tartrate [Lopressor] 100 mg PO BID 02/22/18 Multivitamin [Multiple Vitamins] 1 each PO DAILY 02/22/18 Apixaban [Eliquis] 5 mg PO BID #90 tab 02/24/18 Cyclobenzaprine [Flexeril] 10 mg PO BID PRN PRN #14 tab 02/24/18 Lisinopril [Zestril] 20 mg PO DAILY #30 tab 02/24/18 Following Prescrptions Were Given to Patient: Cyclobenzaprine [Flexeril] 10 mg PO BID PRN PRN #14 tab PRN Reason: Muscle spasm, back pain Lisinopril [Zestril] 20 mg PO DAILY #30 tab Apixaban [Eliquis] 5 mg PO BID #90 tab Primary Care Physician: Care Physician,No Primary [Primary Care Provider] - Please follow up with your Primary Care Physician in: 1 week. Please Follow Up With: Alex Rebolledo MD When: 3 weeks. Please call his office. Patient Instructions: Discharge Instructions for Atrial Fibrillation Disposition: Home Minutes spent on discharge:: 33 Patient Condition:: Stable Medical Necessity - Tobacco Use Smoking Status: Former smoker Tobacco Use: Cigarettes Meaningful Use Info Meaningful Use Diagnoses (Choose all that apply): None applicable Code Visit Inpatient E&M: 69853 Disch Hosp
== END 2018-02-24 10:00 | disposition home or self-care (01) | DRG 310 ==
LOC: ED 10:47 → PCU 11:24
PROVIDERS: Admitting Provider Hospitalist; Emergency Provider Emergency Medicine; Visit Provider Hospitalist
DX: I48.92 Unspecified atrial flutter (principal); I48.91 Unspecified atrial fibrillation; G89.29 Other chronic pain; I10 Essential (primary) hypertension; Z90.411 Acquired partial absence of pancreas; Z87.891 Personal history of nicotine dependence; M54.5 Low back pain; R55 Syncope and collapse; Z79.899 Other long term (current) drug therapy
CPT/HCPCS: 36415; 71045; 78452; 80048; 80061; 80076; 83690; 83735; 84443; 84484; 85025; 85610; 85730; 93005; 93017; 93306; 99285; A9500; J7030; A4216; J2785

== ENCOUNTER 2021-02-16 14:21 | Emergency (ER) | payer MEDICARE, SELFPAY ==
[2021-01-27 12:58] VITALS: BMI 33.8
[2021-02-16 14:22] VITALS: BP 168/82; PULSE 52; RESP 18; TEMP 36.3; O2SAT 99; BMI 32.5
--- NOTE | 2021-02-16 14:47 | EKG12_ITS ---
Test Reason : HIGH BP Blood Pressure : / mmHG Vent. Rate : 049 BPM Atrial Rate : 049 BPM P-R Int : 178 ms QRS Dur : 090 ms QT Int : 484 ms P-R-T Axes : 029 -01 021 degrees QTc Int : 437 ms Sinus bradycardia Otherwise normal ECG Confirmed by CARRIE ANTOINE, CELY ([id number]), society editor MADALYN FREEMAN ([id number]) on 02/17/2021 2:21:10 PM Referred By: BB Confirmed By:CELY BUTLER MD
--- NOTE | 2021-02-16 14:47 | ED.DCSUM_ITS ---
History of Present Illness Chief Complaint: Hypertension Informant: Patient Onset: Days - 4 Context: Gradual Onset Timing: Intermittent, Waxes and wanes Quality: Elevated blood pressure. Malaise. Location: All over Current Severity: Moderate Maximum Severity: Severe Worsened by: Seems to be worse when blood pressure elevated Relieved by: Bring in pressure down Associated Symptoms: No other symptoms Narrative: Patient on metoprolol and amlodipine twice daily for blood pressure. 4 days ago he was in his doctor's office for routine checkup, he was feeling okay but his blood pressure was in the 140s-150s, he had been taking amlodipine 10 mg pill, breaking it in half to take 5 mg twice daily, and this was changed to a 5 mg pill apparently from a different administration clerk. He states ever since his blood pressure has been higher still and he has been feeling poorly but cannot give me any specific symptoms. No lightheadedness, near syncope, chest pain, shortness of breath, swelling, vomiting, sweating, focal neurologic symptoms, or head aches. He states the day of his doctor appointment, his systolic went to 190 and he was feeling currently. - Past Medical History (1) Paroxysmal atrial fibrillation Status: Chronic (2) Chronic back pain Status: Chronic (3) Hypertension Status: Chronic (4) History of colon cancer Status: Chronic Past Medical History - Allergies and Home Meds Allergies/Adverse Reactions: Allergies Penicillins Allergy (Verified 02/16/21 14:22) Itching lisinopril Adverse Reaction (Verified 02/16/21 14:22) cough Primary Care Physician: Doctor,Your [STAFF PHYSICIAN] - (This week, call for appointment) Surgical History: - - Whipple procedure. Smoking Status: Former smoker - Family History Maternal Family History: Family History (Last Reviewed 01/27/21 @ 13:29 by Celestina DENG, PA) Unknown No problems noted. Family History: Reports: No pertinent history Paternal Family History: Family History (Last Reviewed 01/27/21 @ 13:29 by Celestina DENG, PA) Unknown No problems noted. Family History: Reports: No pertinent history Review of Systems General: Reports: Malaise. Denies: Chills, Fever, Sweats Eyes: Denies: Visual changes - bilaterally, Diplopia ENT: Denies: Bilateral ear pain, Rhinorrhea, Sore throat Cardiovascular: Denies: Chest pain, Palpitations Respiratory: Denies: Dyspnea, Cough, Dyspnea on exertion Gastrointestinal: Denies: Abdominal pain, Nausea, Vomiting, Diarrhea, Melena, Hematochezia Genitourinary: Denies: Dysuria, Hematuria, Frequency Musculoskeletal: Reports: Back pain - Chronic, mild, stable and unchanged, Swelling - Mild chronic both ankles unchanged. Denies: Myalgias, Neck pain, Extremity Pain Skin: Denies: Rash, Wounds Neurological: Denies: Headache, Weakness, Numbness Physical Exam Vital Signs/Narrative: Vital Signs Temp Pulse Resp BP Pulse Ox 02/16/21 14:22 97.4 F L 52 L 18 168/82 H 99 Inital Vital Signs reviewed: Yes General: Well nourished, Well developed, No Acute Distress Head: Normocephalic, Atraumatic Eyes: Perrl, EOMI ENT: Moist mucous membranes, No rhinorrhea Neck: Supple, Nontender Cardiovascular: Regular rate, Regular rhythm, No murmurs, Bradycardia - Borderline Respiratory: No distress, CTA bilaterally, Chest nontender Abdomen: Soft, Nontender, Nondistended, Normal bowel sounds. Negative for: Pulsatile mass Back: Nontender, Normal Inspection Extremities: Nontender, No edema. Negative for: Calf Tenderness Skin: Normal color, No rash, No Trauma Neurological: Alert, Oriented x3, Cranial nerves II-XII grossly intact, Normal Strength, Normal Sensation, Normal Gait Psychological: Normal affect, Normal Mood Diagnostic/Tx/Re-eval Laboratory Tests 02/16/21 02/16/21 Range/Units 15:24 15:24 WBC 7.3 (4.4-11.0) K/mm3 RBC 4.48 L (4.6-6.2) M/mm3 Hgb 13.4 (13.0-16.5) g/dL Hct 40.0 (40-54) % MCV 89.3 (80-94) fL MCH 29.9 (27.0-32.0) pg MCHC 33.5 (32-36) g/dL RDW Std Deviation 43.4 (35.1-43.9) fl RDW Coeff of Marlene 13.3 (11.6-14.6) % Plt Count 237 (150-450) K/mm3 MPV 10.2 (6.2-12.0) fl Immature Gran % (Auto) 0.400 (0.0-0.9) % Neut % (Auto) 72.0 H (47-70) % Lymph % (Auto) 15.4 L (19-41) % [place] % (Auto) 9.1 (0-10) % Eos % (Auto) 2.0 (0-5) % Baso % (Auto) 1.1 H (0-1) % Absolute Neuts (auto) 5.3 (2.0-7.7) X10^3/uL Absolute Lymphs (auto) 1.13 (0.83-4.51) X10^3/uL Nucleated RBC % 0 (0-5) % Sodium 140 (136-145) mmol/L Potassium 3.9 (3.5-5.1) mmol/L Chloride 108 H (98-107) mmol/L Carbon Dioxide 28.0 (21.0-32.0) mmol/L Anion Gap 4 L (5-15) BUN 21 H (7-18) mg/dL Creatinine 1.13 (0.70-1.30) mg/dL Estim Creat Clear Calc 67.69 ml/min Est GFR (MDRD) Af Amer 82 (>60) mL/min Est GFR (MDRD) Non-Af 68 (>60) mL/min BUN/Creatinine Ratio 18.6 (10-20) RATIO Glucose 98 (74-106) mg/dL Calcium 8.9 (8.5-10.1) mg/dL Troponin I < 0.015 (<0.045) ng/mL - Rhythm Strip Rhythm Strip: Sinus Rhythm Rate: 50 Ectopy: None - EKG Initial EKG Interpretation: No Acute Injury Pattern, Sinus Bradycardia - At 49; normal otherwise - Medical Decision Making Work-up as above is unremarkable. Since the patient is already borderline bradycardic on metoprolol 50 mg twice daily, we will hold off on adjusting. He was given clonidine 0.2 mg orally here in the ER and on reevaluation his blood pressures come down to systolic 141. will double his amlodipine and have his metoprolol until he is able to follow-up after the weekend, since his relative bradycardia may be the reason for his symptoms, not his blood pressure elevation. Since he is resting at 40 and 41 here, I am also advising him to hold his nighttime dose tonight of metoprolol. He is comfortable with that plan . ED Disposition - Plan for ED Patient: Disposition: Home or Assisted Living Diagnosis: Accelerated hypertension, Bradycardia Instructions: ED High Blood Pressure ... Referrals: Doctor,Your [STAFF PHYSICIAN] - (This week, call for appointment) Additional Instructions: Double your amlodipine until you are seen by your doctor this week, so that you are taking 10 mg twice daily (2 pills, each dose, twice a day). Also, have your metoprolol, taking 25 mg twice daily (1/2 pill each dose, twice a day). Hold/do not take your metoprolol tonight, resume it in the morning with half of a pill. Leave your other medication alone and take it as previously prescribed.
[2021-02-16] MEDS: cloNIDine HCl 0.1 MG Tablet 0.2 MG PO (15:28)
[2021-02-16 15:32] LABS: Absolute Lymphocyte Count 1.13 X10^3/uL (0.83-4.51); Absolute Neutrophil Count 5.3 X10^3/uL (2.0-7.7); Basophil# 0.08 X10^3/uL; Basophil% 1.1 % (0-1); Eosinophil# 0.15 X10^3/uL; Hemoglobin 13.4 g/dL (13.0-16.5); Lymphocyte # 1.13 X10^3/ul (4.0); Lymphocyte % 15.4 % (19-41); Mean Corp Hgb Conc 33.5 g/dL (32-36); Mean Corpuscular Hgb 29.9 pg (27.0-32.0); Mean Corpuscular Volume 89.3 fL (80-94); Mean Platelet Vol. 10.2 fl (6.2-12.0); Monocyte# 0.67 X10^3/uL; Monocyte% 9.1 % (0-10); NRBC Flagged by Analyzer 0 % (0-5); Neutrophil # 5.27 X10^3/uL (2.7-7.7); Platelet Count 237 K/mm3 (150-450); RBC Distribution Width CV 13.3 % (11.6-14.6); RBC Distribution Width SD 43.4 fl (35.1-43.9); Red Blood Count 4.48 M/mm3 (4.6-6.2); White Blood Count 7.3 K/mm3 (4.4-11.0)
[2021-02-16 16:04] LABS: Anion Gap 4 (5-15); BUN 21 mg/dL (7-18); BUN/Creat Ratio 18.6 RATIO (10-20); Calcium,Total 8.9 mg/dL (8.5-10.1); Chloride 108 mmol/L (98-107); Creatinine, Serum 1.13 mg/dL (0.70-1.30); EST Glomerular Filtration Rate 68 mL/min (>60); Est Glom Filt Rate - Afr Amer 82 mL/min (>60); Estimated Creatinine Clearance 67.69 ml/min; Glucose 98 mg/dL (74-106); Potassium 3.9 mmol/L (3.5-5.1); Sodium Level 140 mmol/L (136-145)
[2021-02-16 16:34] VITALS: BP 140/83; PULSE 44; RESP 16; O2SAT 95
== END 2021-02-16 17:04 | disposition home or self-care (01) ==
PROVIDERS: Emergency Provider Emergency Medicine
DX: I10 Essential (primary) hypertension (principal); R00.1 Bradycardia, unspecified; Z87.891 Personal history of nicotine dependence; I48.0 Paroxysmal atrial fibrillation; M54.9 Dorsalgia, unspecified; G89.29 Other chronic pain; Z85.038 Personal history of other malignant neoplasm of large intestine; Z88.0 Allergy status to penicillin
CPT/HCPCS: 80048; 84484; 85025; 93005; 99285; A4216

== ENCOUNTER → 2021-02-26 07:09 | Outpatient (CLI) | payer MEDICARE, SELFPAY ==
[2021-02-16 14:22] VITALS: BMI 32.5
[2021-02-26 07:59] LABS: AST(SGOT) 18 U/L (15-37); Alanine Aminotransfer ALT/SGPT 27 U/L (16-61); Albumin, Serum 3.6 g/dL (3.2-5.0); Alkaline Phosphatase 113 U/L (45-117); Anion Gap 3 (5-15); BUN 22 mg/dL (7-18); BUN/Creat Ratio 17.5 RATIO (10-20); Bilirubin, Direct 0.21 mg/dL (0.00-0.30); Calcium,Total 8.9 mg/dL (8.5-10.1); Chloride 106 mmol/L (98-107); Cholesterol 173 mg/dL (200); Creatinine, Serum 1.26 mg/dL (0.70-1.30); EST Glomerular Filtration Rate 60 mL/min (>60); Est Glom Filt Rate - Afr Amer 72 mL/min (>60); Glucose 107 mg/dL (74-106); High Density Lipoprotein 50 mg/dL; Potassium 4.1 mmol/L (3.5-5.1); Protein, Total 7.6 g/dL (6.4-8.2); Sodium Level 139 mmol/L (136-145); Triglycerides 134 mg/dL; Very Low Density Lipoprotein 27 mg/dL (5-40)
== END ==
PROVIDERS: Referring Provider Physician Assistant Medical; Visit Provider Physician Assistant Medical
DX: E78.5 Hyperlipidemia, unspecified (principal); I10 Essential (primary) hypertension; I48.0 Paroxysmal atrial fibrillation
CPT/HCPCS: 36415; 80048; 80061; 80076